=== PATIENT | male | born 1995 | race Hispanic/Latino ===

== ENCOUNTER 2021-12-09 14:14 | Emergency (ER) | payer BC | END 2021-12-09 15:40 | disposition home or self-care (01) | LOC: CSHERS 14:14 | DX: S00.432D Contusion of left ear, subsequent encounter (principal); R00.0 Tachycardia, unspecified; F17.210 Nicotine dependence, cigarettes, uncomplicated; Y04.0XXD Assault by unarmed brawl or fight, subsequent encounter | CPT/HCPCS: 99282 ==

== ENCOUNTER 2024-06-29 06:21 | Emergency (ER) | payer SELFPAY | END 2024-06-29 06:48 | disposition home or self-care (01) | LOC: EEVIPCON 06:21 → CSHERS 06:21 | DX: S20.211A Contusion of right front wall of thorax, initial encounter (principal); M79.672 Pain in left foot; F17.210 Nicotine dependence, cigarettes, uncomplicated; X58.XXXA Exposure to other specified factors, initial encounter | CPT/HCPCS: 71045 ==